=== PATIENT | female | born 1960 | race Caucasian/White ===

== ENCOUNTER → 2017-11-06 | Day surgery (SDC) | payer OTHER ==
[~2017-11-06] VITALS: Ht 167.6 cm; Wt 122.5 kg
--- NOTE | 2017-11-06 15:28 | Operative Report ---
Operative/Inv Procedure Report Surgery Date: 11/06/17 Name of Procedure: Left knee arthroscopy, partial medial meniscectomy Pre-Operative Diagnosis: Left knee medial meniscus tear Post-Operative Diagnosis: Left knee medial meniscus tear Estimated Blood Loss: scant Surgeon/Reporter: Pierre Puga MD Anesthesia: laryngeal mask airway Complications: None Condition: Stable to PACU Operative Indication: This is a 57-year-old female who injured her left knee after a fall. MRI showed a medial meniscus tear. Risks and benefits of the procedure were discussed with the patient at length. Risks include but are not limited to nerve damage, muscle damage, infection, blood loss, blood clots, pulmonary embolus, and even . The patient agreed to the above risks and elected to proceed with surgery. Operative/Procedure Note Note: The patient was placed supine on the operating room table. A tourniquet was applied. The lower extremity was prepped and draped in normal sterile fashion. A timeout was performed before the incision. The site marking was visualized before incision. After the leg was prepped and draped, an Esmarch was used to exsanguinate the extremity. The tourniquet was inflated. A standard inferolateral portal was established with an 11 blade. The camera was inserted. A medial portal was established with a spinal needle and an 11 blade. The diagnostic arthroscopy was then performed which showed the above findings. An upbiter was used to debride the posterior horn of the medial meniscus. There was a tear extending through the root as such there was no anchor point of the posterior horn. This was debrided back to a stable rim of cartilage. The shaver was used to complete the debridement. Chondroplasty was then performed over the medial femoral condyle. The knee was copiously irrigated. The portal sites were closed with 3-0 nylon suture in a simple interrupted fashion. The knee was injected with 10 mL of 0.25% Marcaine with epinephrine. A dry sterile dressing was applied and the patient was transferred to PACU in stable condition. Findings: Tear of the posterior horn of the medial meniscus through the root. Grade 3 and 4 chondral changes over the femoral condyle. Medial tibial plateau grade 2 chondral changes. ACL intact. Patient with intact. Lateral compartment articular cartilage with grade 2 chondral changes over the lateral tibial plateau. Grade 1 chondral softening of the lateral femoral condyle. Lateral meniscus intact. Grade 4 chondral changes of the patella as well as trochlea. No loose bodies noted.
== END ==
LOC: STS 05:17
DX: S83.242A Other tear of medial meniscus, current injury, left knee, initial encounter (principal); M94.262 Chondromalacia, left knee; W19.XXXA Unspecified fall, initial encounter; I10 Essential (primary) hypertension; E66.01 Morbid (severe) obesity due to excess calories; Z68.41 Body mass index [BMI] 40.0-44.9, adult
CPT/HCPCS: 93005; 93010; J0131; J0690; J2250